=== PATIENT | male | born 1990 | race Hispanic/Latino ===

== ENCOUNTER 2017-08-22 18:13 | Emergency (ER) | payer BC ==
[2017-08-22 18:32] VITALS: BP 133/73; PULSE 97; RESP 20; TEMP 99; O2SAT 99
[2017-08-22 19:47] LABS: BASO % 0.4 % (0.0-2.0); EOS # 0.1 K/uL (0.0-0.7); EOS % 0.7 % (0.0-4.0); HEMOGLOBIN 14.9 g/dL (12.0-18.0); LYMPH # 2.2 K/uL (1.0-4.3); LYMPH % 27.2 % (20.0-40.0); MEAN CORPUSCULAR HEMOGLOBIN 29.6 pg (27.0-31.0); MEAN PLATELET VOLUME 8.8 fL (7.2-11.7); MONO # 0.5 K/uL (0.0-0.8); MONO % 6.8 % (0.0-10.0); NEUT # 5.1 K/uL (1.8-7.0); NEUT % 64.9 % (50.0-75.0); RBC 5.06 Mil/uL (4.40-5.90); RED CELL DISTRIBUTION WIDTH 12.7 % (11.5-14.5); WHITE BLOOD COUNT 7.9 K/uL (4.8-10.8)
[2017-08-22 20:02] LABS: ALB/GLOB RATIO 1.5 (1.0-2.1); ALBUMIN 4.9 g/dL (3.5-5.0); ALT/SGPT 26 U/L (21-72); AST/SGOT 21 U/L (17-59); BLOOD UREA NITROGEN 8 mg/dL (9-20); GFR AFRICAN-AMERICAN > 60; GFR NON-AFRICAN AMERICAN > 60
--- NOTE | 2017-08-22 20:13 | C.PDOC ---
History Of Present Illness 26-year-old male, presents to the emergency department with complaints of left sided headache x2 months, associated with pressure below the left eye. Today his eye became red and is twitching, resulting in him coming to ED for evaluation. Patient evaluated 3 weeks ago at [facility] with negative CT scan, and sent home with Rx for Fioricet. Patient seen by PMD who treated patient with antibiotics and Imitrex, that he was taking with no improvement. Patient states he had recent bloodwork with negative results. He was last evaluated by PMD yesterday. He has not followed up with neurologist. Denies any discharge from eyes. No fevers, visual changes, vomiting, sob, abdominal pain. Pt is HIV positive, viral load undetectable and CD4 count is >200. Time Seen by Provider: 08/22/17 18:34 Chief Complaint (Nursing): Headache History Per: Patient History/Exam Limitations: no limitations Past Medical History Reviewed: Historical Data, Nursing Documentation, Vital Signs Vital Signs: Last Vital Signs Temp 99 F 08/22/17 18:27 Pulse 97 H 08/22/17 18:27 Resp 20 08/22/17 18:27 BP 133/73 08/22/17 18:27 Pulse Ox 99 08/22/17 21:15 Family History: States: No Known Family Hx - Social History Hx Alcohol Use: Yes Hx Substance Use: No - Immunization History Hx Tetanus Toxoid Vaccination: Yes Hx Influenza Vaccination: Yes Hx Pneumococcal Vaccination: No Review Of Systems Constitutional: Negative for: Fever, Chills Eyes: Positive for: Redness. Negative for: Vision Change Gastrointestinal: Negative for: Vomiting Musculoskeletal: Negative for: Neck Pain Neurological: Positive for: Headache. Negative for: Weakness, Numbness Physical Exam - Physical Exam Appears: Non-toxic, No Acute Distress Skin: Normal Color, Warm, Dry, No Rash Head: Atraumatic, Normacephalic, Tenderness (Right maxillary) Eye(s): bilateral: PERRL, EOMI, left: Other (INJECTED) Ear(s): Bilateral: Normal Nose: Normal Oral Mucosa: Moist Lips: Normal Appearing Throat: Normal, No Erythema, No Exudate Neck: Normal ROM, Supple Chest: Symmetrical Cardiovascular: Rhythm Regular Respiratory: Normal Breath Sounds, No Accessory Muscle Use Extremity: Normal ROM, No Deformity, No Swelling Neurological/Psych: Oriented x3, Normal Speech, Normal Cognition, Normal Motor, Normal Sensation, Other (No focal deficits) ED Course And Treatment - Laboratory Results Result Diagrams: 08/22/17 19:43 08/22/17 19:43 O2 Sat by Pulse Oximetry: 99 (RA) Pulse Ox Interpretation: Normal - CT Scan/US Head Ct Other Rad Studies (CT/US): Read By Radiologist, Radiology Report Reviewed CT/US Interpretation: EXAM: CT Head With Intravenous Contrast. EXAM DATE/TIME : 08/22/2017 7:28 PM. CLINICAL HISTORY: 26 years old, male; Signs and symptoms ; Other: Headache, red left eye, hiv +; Additional info: Head. ache, immunocompromised. TECHNIQUE: Axial computed tomography images of the head/ brain with intravenous contrast. All CT scans at this. facility use one or more dose reduction techniques, viz.: automated exposure control; ma/kV. adjustment per patient size (including targeted exams where dose is matched to indication; i.e. head);. or iterative reconstruction technique. Coronal and sagittal reformatted images were created and reviewed. CONTRAST: 100 mL of VISIPAQUE administered intravenously. COMPARISON: No relevant prior studies available. FINDINGS: Brain: Unremarkable. No hemorrhage. No edema. Normal enhancement. Ventricles: Unremarkable. No ventriculomegaly. Bones/joints: Unremarkable. No acute fracture. Soft tissues: Unremarkable. Sinuses: Unremarkable as visualized. No acute sinusitis. Mastoid air cells: Unremarkable as visualized. No mastoid effusion. IMPRESSION: Unremarkable head /brain CT. Thank you for allowing us to participate in the care of your patient. Progress Note: CT Head, Bloodwork and UA ordered and reviewed. Patient treated with Toradol. On reassessment, patient is resting comfortably, is tolerating PO , and no longer has headache, neurologic deficit, photophobia, rash, fever, or nuchal rigidity. Case discussed with Dr Franco who evaluated pt at bedside and agreed upon plan and discharge. Pt was instructed to follow up with neurology in 1-2 days or return to eR if symtpoms persist or worsen. Disposition - Disposition Referrals: Bret Bettencourt MD [Staff Provider] - Disposition: HOME/ ROUTINE Disposition Time: 21:13 Condition: STABLE Additional Instructions: Follow up with primary medical doctor in 1-3 days without fail for further evaluation. Take medications as prescribed. Return to the emergency department at any time if symptoms persist or worsen. Prescriptions: Naproxen [Naprosyn] 1 tab PO BID PRN #20 tab PRN Reason: Pain Tobramycin [Tobrex] 2 drop OS Q6 5 Days drops Instructions: Headache, Adult Forms: [facility] (Nepali) - Clinical Impression Clinical Impression: Headache, Conjunctivitis - Scribe Statement The provider has reviewed the documentation as recorded by the Scribe (Vivian Del Cid) All medical record entries made by the Scribe were at my direction and personally dictated by me. I have reviewed the chart and agree that the record accurately reflects my personal performance of the history, physical exam, medical decision making, and the department course for this patient. I have also personally directed, reviewed, and agree with the discharge instructions and disposition.
[2017-08-22 20:26] LABS: URINE BACTERIA RARE (<OCC); URINE BILIRUBIN NEGATIVE (NEGATIVE); URINE BLOOD NEGATIVE (NEGATIVE); URINE CLARITY Clear (Clear); URINE COLOR Yellow (YELLOW); URINE GLUCOSE (UA) NORMAL (Normal); URINE LEUKOCYTE ESTERASE NEG Leu/uL (Negative); URINE PROTEIN NEGATIVE (NEGATIVE); URINE UROBILINOGEN NORMAL mg/dL (0.2-1.0)
[2017-08-22] MEDS ORDERED: Iodixanol 320 MG/ML 100 ML BOTTLE IV ONE (20:34)
--- NOTE | 2017-08-23 09:05 | CT ---
PROCEDURE: CT HEAD WITH CONTRAST HISTORY: head ache, immunocompromised COMPARISON: None available. TECHNIQUE: Axial computed tomography images were obtained through the head/brain with intravenous contrast. Contrast dose: 100 mL Visipaque 320 Radiation dose: Total exam DLP = 835.40 mGy-cm. This CT exam was performed using one or more of the following dose reduction techniques: Automated exposure control, adjustment of the mA and/or kV according to patient size, and/or use of iterative reconstruction technique. FINDINGS: HEMORRHAGE: No intracranial hemorrhage. BRAIN: No mass, mass effect or edema. No abnormal intracranial enhancement. No atrophy or chronic microvascular ischemic changes. VENTRICLES: Unremarkable. No hydrocephalus. CALVARIUM: Unremarkable. PARANASAL SINUSES: Unremarkable as visualized. No significant inflammatory changes. MASTOID AIR CELLS: Unremarkable as visualized. No mastoid effusion. OTHER FINDINGS: None. IMPRESSION: Normal contrast enhanced CT of the head. No intracranial mass, hemorrhage or evidence of acute infarct.
== END 2017-08-22 21:29 | disposition home or self-care (01) ==
LOC: C.ER 18:13
DX: R51 Headache (principal); H10.9 Unspecified conjunctivitis
CPT/HCPCS: 70460; 80053; 81001; 85025; 96374; 99285; J1885; Q9967